=== PATIENT | female | born 1950 | race Caucasian/White ===

== ENCOUNTER → 2020-05-29 11:32 | Outpatient (CLI) | payer MEDICARE, OTHER, SELFPAY ==
--- NOTE | ~2020-05-29 | MM_ITS ---
EXAMINATION: MM screening [facility] BI w pavithra HISTORY: Screening mammogram TECHNIQUE: Craniocaudal and mediolateral oblique 3-D tomosynthesis images were obtained and synthetic 2-D images were generated. CAD analysis was submitted and interpreted. COMPARISON: 12/29/2017, 11/25/2016, 10/30/2015 bilateral digital screening mammogram examinations BREAST PARENCHYMAL COMPOSITION: The breasts are heterogeneously dense, which may obscure small masses . FINDINGS: There is no evidence of suspicious mass, calcification, or architectural distortion to sugg est malignancy in either breast. There has been no suspicious interval change. IMPRESSION: 1. No mammographic evidence of malignancy. 2. Recommend routine screening mammography in one year. BI-RADS Category 1: Negative Reviewed, dictated and finalized at location A.
--- NOTE | ~2020-05-29 | DEXA_ITS ---
Bone Density Report Name: Elisa Nair Age: 69 Sex: Female Ethnicity: White Date of : 1950 Indication: postmenopausal osteoporosis; monitoring treatment; hyperparathyroidism; prior fracture; hysterectomy; Referring Provider: [place] Study: Bone densitometry was performed. Exam Date: May 29, 2020 Accession number: [id number] Bone Density: Region BMD T-score Z-score Classification AP Spine (L1-L4) 0.743 -2.8 -0.5 Osteoporosis Femoral Neck (Right) 0.628 -2.0 -0.1 Osteopenia Total Hip (Right) 0.707 -1.9 -0.3 Osteopenia World Health Organization criteria for BMD impression classify patients as: Normal (T-score at or above -1.0), Osteopenia (T-score between -1.0 and -2.5), or Osteoporosis (T-score at or below -2.5). 10-year Fracture Risk: FRAX not reported because: Some T-score for Spine Total or Hip Total or Femoral Neck at or below -2.5 Treated for osteoporosis Previous Exams: Region Exam Age BMD T-score BMD Change BMD Change Date g/cm2 vs Baseline vs Previous AP Spine(L1-L4) 05/29/2020 69 0.743 -2.8 -0.020 -0.017 04/30/2017 66 0.761 -2.6 -0.003 -0.003 08/30/2014 64 0.764 -2.6 Total Hip(Right) 05/29/2020 69 0.707 -1.9 -0.009 -0.016 04/30/2017 66 0.723 -1.8 0.007 0.007 08/30/2014 64 0.716 -1.9 *Denotes significance at 95% confidence level, LSC for AP Spine = 0.022 g/cm2, LSC for Total Hip = 0.027 g/cm2 Clinical Information Provided by Patient: Has had a low trauma fracture Is being treated for osteoporosis Has used the following medications: HRT (i.e. estrogen/hormone therapy), Calcium Has the following medical conditions: Hyperparathyroidism, Hysterectomy Patient maximum height was 63.2 Menopause Age: 53 Drinks caffeinated beverages Onset of menses at age 14 Number of children 2 Impression: The patient has established osteoporosis, based on the Total Spine T-score and the existence of a prior fracture. The patient has risk factors, including: previous fracture. No significant bone loss was observed. Discussion: PATIENT UNDER TREATMENT WITH NO SIGNIFICANT BMD LOSS SINCE LAST EXAM. In an untreated patient, BMD typically declines with age. A lack of decline or gain is usually a sign that treatment is efficacious and fracture risk is reduced. It is important to ask patients whether they are taking their medications and to encourage continued and appropriate compliance with their osteoporosis therapies to reduce fracture risk. It
== END ==
PROVIDERS: PCP Family Medicine; Visit Provider Family Medicine
DX: Z12.31 Encounter for screening mammogram for malignant neoplasm of breast (principal); M81.0 Age-related osteoporosis without current pathological fracture; M85.851 Other specified disorders of bone density and structure, right thigh
CPT/HCPCS: 77063; 77067; 77080

== ENCOUNTER → 2021-05-14 09:37 | Outpatient (CLI) | payer MEDICARE, OTHER, SELFPAY ==
--- NOTE | ~2021-05-14 | CT_ITS ---
EXAMINATION: CT abdomen pelvis w con INDICATION: Left lower quadrant pain, diverticulitis TECHNIQUE: Computed tomographic images of the abdomen and pelvis were obtained after the administrati on of 100 cc of Omnipaque 350 intravenous contrast. The dose-length product (DLP) was 302.92 mGy-cm. Automated exposure control and iterative reconstruction technique were employed. COMPARISON: 01/24/2019 FINDINGS: Minimal dependent atelectasis is present in the lung bases. The heart size is normal. The l iver is diffusely low in attenuation when compared with the spleen, consistent with hepatic steatosis . The spleen, pancreas, gallbladder, and adrenal glands are normal. There is a 4 mm cyst of the right kidney. The left kidney is unremarkable. There is calcified atherosclerosis of the aorta and many of the other arteries. No pathologically enlarged abdominal or pelvic lymph nodes are identified. Colon ic diverticulosis is present without evidence of diverticulitis. The appendix is normal. There are ch anges of left total hip arthroplasty. A large volume of colonic stool is present. IMPRESSION: 1. Diverticulosis without evidence of diverticulitis. Reviewed, dictated and finalized at location A.
[2021-05-14 09:54] LABS: Estimated Glomerular Filt Rate > 60
== END ==
PROVIDERS: PCP Family Medicine; Visit Provider Physician Assistant
DX: N28.1 Cyst of kidney, acquired (principal); K57.30 Diverticulosis of large intestine without perforation or abscess without bleeding
CPT/HCPCS: 74177; Q9967

== ENCOUNTER → 2021-08-21 11:58 | Outpatient (CLI) | payer MEDICARE, OTHER, SELFPAY ==
--- NOTE | ~2021-08-21 | MM_ITS ---
EXAMINATION: MM screening [facility] BI w pavithra HISTORY: Screening mammogram TECHNIQUE: Craniocaudal and mediolateral oblique 3-D tomosynthesis images were obtained and synthetic 2-D images were generated. CAD analysis was submitted and interpreted. COMPARISON: 05/29/2020, 12/29/2017, 11/25/2016 bilateral screening mammogram examinations BREAST PARENCHYMAL COMPOSITION: The breasts are heterogeneously dense, which may obscure small masses . FINDINGS: There is no evidence of suspicious mass, calcification, or architectural distortion to sugg est malignancy in either breast. There has been no suspicious interval change. IMPRESSION: 1. No mammographic evidence of malignancy. 2. Recommend routine screening mammography in one year. BI-RADS Category 1: Negative Reviewed, dictated and finalized at location A. RMATION ASSISTANT
== END ==
PROVIDERS: PCP Family Medicine; Visit Provider Family Medicine
DX: Z12.31 Encounter for screening mammogram for malignant neoplasm of breast (principal)
CPT/HCPCS: 77063; 77067

== ENCOUNTER → 2022-05-21 11:56 | Outpatient (CLI) | payer MEDICARE, OTHER, SELFPAY ==
--- NOTE | ~2022-05-21 | XR_ITS ---
XR knee LT min 4V 05/21/2022 12:08 INDICATION: Left knee pain PROCEDURE: 4 views left knee COMPARISON: No prior studies for comparison. FINDINGS: Fracture, dislocation or subluxation is not identified. There is mild osteoarthritis of the left knee. No significant joint effusion. The soft tissues appear within normal limits. No foreign bodies are identified. IMPRESSION: 1: Mild osteoarthritis of the left knee. Reviewed, dictated and finalized at location A.
== END ==
PROVIDERS: PCP Family Medicine; Visit Provider Physician Assistant
DX: M25.562 Pain in left knee (principal); M17.12 Unilateral primary osteoarthritis, left knee
CPT/HCPCS: 73564

== ENCOUNTER 2022-06-09 10:56 | Outpatient (CLI) | payer MEDICARE, OTHER, SELFPAY ==
[2022-06-09 19:09] LABS: Alanine Aminotransferase 10 U/L (6-35); Albumin Level 4.5 g/dL (3.5-5.1); Alkaline Phosphatase 78 U/L (38-126); Anion Gap 5 mmol/L (8-16); Aspartate Amino Transferase 24 U/L (14-36); Bilirubin,Total 0.6 mg/dL (0.2-1.3); Blood Urea Nitrogen 13 mg/dL (7-17); Calcium 9.3 mg/dL (8.4-10.2); Carbon Dioxide 30 mmol/L (22-30); Chloride 99 mmol/L (98-107); Cholesterol 205 mg/dL (0-200); Estimated Glomerular Filt Rate > 60; Glucose 103 mg/dL (65-110); HDL Direct 48 mg/dL; Potassium 4.2 mmol/L (3.4-5.0); Sodium 134 mmol/L (137-145); Triglycerides 176 mg/dL (<150)
[2022-06-09 19:20] LABS: LDL Cholesterol Direct 121 mg/dL
[2022-06-09 19:41] LABS: Vitamin D 25 Hydroxy 43.1 ng/mL
== END 2022-06-09 10:57 | disposition home or self-care (01) ==
LOC: ANHGOSHLAB 11:01
PROVIDERS: PCP Family Medicine; Visit Provider Family Medicine
DX: E03.9 Hypothyroidism, unspecified (principal); Z78.0 Asymptomatic menopausal state; Z00.8 Encounter for other general examination; R79.89 Other specified abnormal findings of blood chemistry; E55.9 Vitamin D deficiency, unspecified
CPT/HCPCS: 36415; 80053; 80061; 82306; 84443

== ENCOUNTER → 2022-10-08 10:19 | Outpatient (CLI) | payer MEDICARE, SELFPAY ==
--- NOTE | ~2022-10-08 | MM_ITS ---
EXAMINATION: MM screening [facility] BI w pavithra HISTORY: Screening mammogram TECHNIQUE: Craniocaudal and mediolateral oblique 3-D tomosynthesis images were obtained and synthetic 2-D images were generated. CAD analysis was submitted and interpreted. COMPARISON: 08/21/2021, 05/29/2020, 12/29/2017 bilateral screening mammogram examinations BREAST PARENCHYMAL COMPOSITION: There are scattered areas of fibroglandular density. FINDINGS: There is no evidence of suspicious mass, calcification, or architectural distortion to sugg est malignancy in either breast. There has been no suspicious interval change. IMPRESSION: 1. No mammographic evidence of malignancy. 2. Recommend routine screening mammography in one year. BI-RADS Category 1: Negative Reviewed, dictated and finalized at location A. AL SERVICE TECHNICIAN
== END ==
PROVIDERS: PCP Family Medicine; Visit Provider Family Medicine
DX: Z12.31 Encounter for screening mammogram for malignant neoplasm of breast (principal)
CPT/HCPCS: 77063; 77067

== ENCOUNTER → 2022-12-24 09:50 | Outpatient (CLI) | payer MEDICARE, OTHER, SELFPAY ==
--- NOTE | ~2022-12-24 | DEXA_ITS ---
Bone Density Report Name: LUCY HAMILTON Age: 72 Sex: Female Ethnicity: White Date of : 1950 Indication: postmenopausal osteoporosis; monitoring treatment; parental hip fracture; hysterectomy; Referring Provider: OG SERRANO Study: Bone densitometry was performed. Exam Date: December 24, 2022 Accession number: [id number] Bone Density: Region BMD T-score Z-score Classification AP Spine (L1-L4) 0.783 -2.4 0.0 Osteopenia Femoral Neck (Right) 0.762 -0.8 1.3 Normal Total Hip (Right) 0.749 -1.6 0.2 Osteopenia World Health Organization criteria for BMD impression classify patients as: Normal (T-score at or above -1.0), Osteopenia (T-score between -1.0 and -2.5), or Osteoporosis (T-score at or below -2.5). 10-year Fracture Risk: FRAX not reported because: Treated for osteoporosis Previous Exams: Region Exam Age BMD T-score BMD Change BMD Change Date g/cm2 vs Baseline vs Previous AP Spine(L1-L4) 12/24/2022 72 0.783 -2.4 0.020 0.040* 05/29/2020 69 0.743 -2.8 -0.020 -0.017 04/30/2017 66 0.761 -2.6 -0.003 -0.003 08/30/2014 64 0.764 -2.6 Total Hip(Right) 12/24/2022 72 0.749 -1.6 0.033* 0.041* 05/29/2020 69 0.707 -1.9 -0.009 -0.016 04/30/2017 66 0.723 -1.8 0.007 0.007 08/30/2014 64 0.716 -1.9 *Denotes significance at 95% confidence level, LSC for AP Spine = 0.022 g/cm2, LSC for Total Hip = 0.027 g/cm2 Clinical Information Provided by Patient: Parent has had a hip fracture Is being treated for osteoporosis Has used the following medications: HRT (i.e. estrogen/hormone therapy), Prolia (i.e. denosumab), Vitamin D, Calcium Has the following medical conditions: Hysterectomy, HX OF OVARIAN CA IN HER 60'S WITH COMPLETE HYSTERECTOMY Patient maximum height was 63.3 Menopause Age: 53 Drinks caffeinated beverages Onset of menses at age 14 Number of children 2 Impression: The patient has low bone mass, based on the Total Spine T-score. The patient has risk factors, including: parental hip fracture. No significant bone loss was observed. Discussion: PATIENT UNDER TREATMENT WITH NO SIGNIFICANT BMD LOSS SINCE LAST EXAM. In an untreated patient, BMD typically declines with age. A lack of decline or gain is usually a sign that treatment is efficacious and fracture risk is reduced. It is important to ask patients whether they are taking their medications and to encourage continued and appropriate compliance wit
== END ==
PROVIDERS: PCP Family Medicine; Visit Provider Family Medicine
DX: M81.0 Age-related osteoporosis without current pathological fracture (principal); M85.89 Other specified disorders of bone density and structure, multiple sites
CPT/HCPCS: 77080

== ENCOUNTER → 2023-01-26 14:38 | Outpatient (CLI) | payer MEDICARE, OTHER, SELFPAY ==
--- NOTE | ~2023-01-26 | CT_ITS ---
EXAMINATION: CT abdomen pelvis wo con DATE: 01/26/2023 15:03 INDICATION: Left upper quadrant abdominal wall tenderness, left-sided stabbing abdominal pain for 2 w eeks TECHNIQUE: Computed tomography (CT) of the abdomen and pelvis was performed without intravenous contr ast. Automated exposure control and iterative reconstruction technique were employed. Exam dose: 421 .69 mGy-cm total exam DLP. COMPARISON: 05/2021 CT abdomen pelvis FINDINGS: The lung bases are clear of infiltrate or consolidation. Normal heart size. No pericardial or pleural effusion. Occasional calcified splenic granulomas. The liver, gallbladder, bile ducts, spleen, pancreas, pancre atic duct, and Glands and kidneys are otherwise unremarkable. Normal appendix. Diverticulosis of left and right colon; no CT evidence of diverticulitis. No bowel o bstruction, bowel wall thickening, pneumatosis or intraperitoneal free air is detected. There is atherosclerotic calcification but normal caliber of the abdominal aorta and iliac arteries. No intraperitoneal or retroperitoneal or pelvic mass lesion or adenopathy or ascites. Small fat-containing umbilical hernia. No suspicious osteolytic or osteoblastic lesions. Status post left total hip arthroplasty. IMPRESSION: Diverticulosis of the colon; no evidence of diverticulitis Normal appendix Reviewed, dictated and finalized at Location A. Reviewed, dictated and finalized at location L.
== END ==
PROVIDERS: PCP Family Medicine; Visit Provider Family Medicine
DX: K57.30 Diverticulosis of large intestine without perforation or abscess without bleeding (principal); R10.12 Left upper quadrant pain
CPT/HCPCS: 74176

== ENCOUNTER 2024-01-07 14:53 | Outpatient (CLI) | payer MEDICARE, OTHER, SELFPAY ==
--- NOTE | ~2024-01-07 | US_ITS ---
EXAMINATION: US venous doppler [facility] DATE: 01/07/2024 16:17 INDICATION: Left lower limb swelling and localized edema. TECHNIQUE: Grayscale ultrasound images without and with compression and Doppler ultrasound images of the left lower extremity veins were obtained. COMPARISON: None. FINDINGS: The visualized portions of left common femoral vein, profunda (deep) femoral vein, femoral vein, popl iteal vein, peroneal veins, posterior tibial veins, and greater saphenous vein outflow are patent. IMPRESSION: 1. No deep venous thrombosis. Reviewed, dictated and finalized at location A.
== END 2024-01-07 14:54 | disposition home or self-care (01) ==
LOC: ANHIMG 14:54
PROVIDERS: PCP Family Medicine; Visit Provider Family Medicine
DX: R60.0 Localized edema (principal); I89.0 Lymphedema, not elsewhere classified
CPT/HCPCS: 93971

== ENCOUNTER 2024-05-02 11:49 | Outpatient (CLI) | payer MEDICARE, OTHER, SELFPAY ==
--- NOTE | ~2024-05-02 | US_ITS ---
LEFT LOWER EXTREMITY VENOUS ULTRASOUND Ordering provider: Keila Snow MD History: . L foot swelling/hold and call . Comparison: None. FINDINGS: --COMMON FEMORAL: Patent and free of thrombus. Normal compressibility, phasic flow and augmentation. --PROXIMAL SUPERFICIAL FEMORAL: Patent and free of thrombus. Normal compressibility, phasic flow and augmentation. --DISTAL SUPERFICIAL FEMORAL: Patent and free of thrombus. Normal compressibility, phasic flow and au gmentation. --POPLITEAL: Patent and free of thrombus. Normal compressibility, phasic flow and augmentation. --POSTERIOR TIBIAL: Patent and free of thrombus. Normal compressibility, phasic flow and augmentation . IMPRESSION: Negative left lower extremity venous US. No deep vein thrombosis. Reviewed, dictated and finalized at location A.
== END 2024-05-02 11:50 | disposition home or self-care (01) ==
LOC: ANHIMG 11:50
PROVIDERS: PCP Family Medicine; Visit Provider Family Medicine
DX: M79.89 Other specified soft tissue disorders (principal)
CPT/HCPCS: 93971

== ENCOUNTER 2024-06-29 13:57 | Outpatient (CLI) | payer MEDICARE, OTHER, SELFPAY ==
--- NOTE | ~2024-06-29 | MM_ITS ---
EXAMINATION: MM screening [facility] BI w pavithra HISTORY: Screening mammogram TECHNIQUE: Craniocaudal and mediolateral oblique 3-D tomosynthesis images were obtained and synthetic 2-D images were generated. CAD analysis was submitted and interpreted. COMPARISON: 10/08/2022, 08/21/2021, 05/29/2020 BREAST PARENCHYMAL COMPOSITION:Dense: The breasts are heterogeneously dense, which may obscure small masses. FINDINGS: No suspicious mass, calcification, or architectural distortion are identified in either malou ast to suggest malignancy. There has been no suspicious interval change. IMPRESSION: No mammographic evidence of malignancy. Recommend routine screening mammography in one year. BI-RADS Category 1: Negative Reviewed, dictated and finalized at location .
== END 2024-06-29 13:58 | disposition home or self-care (01) ==
LOC: MICIMG 13:58
PROVIDERS: PCP Family Medicine; Visit Provider Family Medicine
DX: Z12.31 Encounter for screening mammogram for malignant neoplasm of breast (principal)
CPT/HCPCS: 77063; 77067

== ENCOUNTER 2025-03-26 10:00 | Outpatient (CLI) | payer MEDICARE, OTHER, SELFPAY ==
--- NOTE | ~2025-03-26 | DEXA_ITS ---
Bone Density Report Name: LUCY HAMILTON Age: 74 Sex: Female Ethnicity: White Date of : 1950 Indication: postmenopausal; screening for osteoporosis; parental hip fracture; hysterectomy; Referring Provider: JAISON CASTANEDA Study: Bone densitometry was performed. Exam Date: March 26, 2025 Accession number: [id number] Bone Density: Region BMD T-score Z-score Classification AP Spine(L1-L4) 0.778 -2.4 0.0 Osteopenia Femoral Neck (Right) 0.712 -1.2 0.9 Osteopenia Total Hip (Right) 0.760 -1.5 0.4 Osteopenia World Health Organization criteria for BMD impression classify patients as: Normal (T-score at or above -1.0), Osteopenia (T-score between -1.0 and -2.5), or Osteoporosis (T-score at or below -2.5). 10-year Fracture Risk: FRAX not reported because: Treated for osteoporosis Clinical Information Provided by Patient: Parent has had a hip fracture Is being treated for osteoporosis Has used the following medications: Prolia (i.e. denosumab), Vitamin D, Calcium Has the following medical conditions: Hysterectomy Patient maximum height was 63.5 Menopause Age: 53 Drinks caffeinated beverages Onset of menses at age 13 Number of children 2 Impression: The patient has low bone mass, based on the Total Spine T-score. The patient has risk factors, including: parental hip fracture. Discussion: It is important to ask patients whether they are taking their medications and to encourage continued and appropriate compliance with their osteoporosis therapies to reduce fracture risk. It is also important to review their risk factors and encourage appropriate calcium and vitamin D intakes, exercise, fall prevention and other lifestyle measures. Follow-Up: Consider a repeat BMD and Vertebral Fracture Assessment (VFA) exam in 2 years or sooner if medically necessary, to reassess this patient's status. Reported by: DEYANIRA on 03/26/2025 10:38:00 AM. Reviewed, dictated and finalized at location A.
--- OUTSIDE RECORDS SUMMARY | 2025-03-26 10:49 | XMS_ITS | Clinical Summary ---
Author Organization [facility] Address [facility] [place] [address] Care Team Providers Care Line Erector Apprentice Name Role Phone Lake Gutierrez MD Primary Care Provider [phone] Social History Tobacco Use Types Packs/Day Years Used Date Smoking Tobacco: Never Assessed Comments Unknown Sex and Gender Information Value Date Recorded Sex Assigned at Not on file Legal Sex Female 1:55 AM CDT Gender Identity Not on file Sexual Orientation Not on file Plan of Treatment Health Maintenance Due Date Last Done Comments Hepatitis C 1966 DTaP, Tdap and Td Vaccines ( 1 - Tdap) 1967 Pneumococcal Vaccine: 50+ Ye ars (1 of 1 - PCV) 1998 Zoster Vaccines (1 of 2) 1998 Dexa Scan (General) 2013 RSV Immunization or 60+ Years (1 - 1-dose 75+ series) 2023 COVID-19 Vaccine ( - 2023-2 5 season) 2024 Meningococcal B Vaccine Aged Out No l onger eligible based on patient's age to complete this topic Meningococcal Vaccine Aged Out No ronald sumanth eligible based on patient's age to complete this topic RSV Immunizations Under 20 Months Aged Out No longer eligible based on patient's age to complete this topic Care Teams Line Erector Apprentice Relationship Specialty Start Date End Date Lake Gutierrez MD [address] [place] [address] PCP - General 06/06/12
--- OUTSIDE RECORDS SUMMARY | 2025-03-26 10:49 | XMS_ITS | Clinical Summary ---
Author Organization [facility] Address [address] [place] [address] Care Team Providers Care Rail Equipment Operator Name Role Phone Krystle Gutierrez MD Primary Care Provider [phone] Source Comments [facility],non-owned Affiliates and Associated Physician Practices is amultiple site organization consisting of ambulatory clinics and hospital sitesin [place], [place], [place] and [place]. This disclosure is being madepursuant to the Care Everywhere program and may not contain all information available regarding this patient. Last updated 18.[facility] Allergies Active Allergy Reactions Criticality Noted Date Comments Codeine Nausea and/or Vomiting Low 08/06/2021 Hydrocodone Nausea and/or Vomiting,Dizziness High 06/28/2019 Lisinopril Cough Low 06/28/2019 Tramadol Palpitations Low 04/19/2012 Reaction: irregular heartbeat, skips a beat, Medications * Be aware that medications may not be up to date on this document. Alwaysverify current medications with the patient. polyethylene glycol (GOLYTELY) 236 g solution Drink 1/2 of prep at 5pm the night before test. Finish the prep at 4am the day of test. 4000 mL 1 Active Additional Information Patient not taking.Reported on 01/05/2022 calcium carbonate (CALCI-CHEW) 1250 (500 Ca) MG chew tablet Activ e cetirizine (ZYRTEC) 10 MG tablet Take 10 mg by mouth once daily Active Cholecalcifero l 50 MCG (2000 UT) Take 2,000 Units by mouth once daily 0 Active denosumab (PROLIA) 60 MG/ML SC injection Inject subcutaneously Every 180 days Active estradiol (ESTRACE) 0.5 MG tablet Take 0.5 mg by mouth once daily 1 Active levothyroxine (SYNTHROID) 75 MCG tablet 1 Active loratadine (CLARITIN) 10 MG tablet Active spironolactone (ALDACTONE) 25 MG tablet 1 Active bifantis (ALIGN) capsule 4 mg Active Active Problems Problem Noted Date Diagnosed Date Gastroesophageal reflux disease without esophagi tis 01/07/2022 Diverticulosis of colon 01/07/2022 Immunizations Immunization Administration Dates Next Due Admitly primary monoval ent 12+ yr 0.3mL Purple cap 05/30/2021,12/09/2020,11/18/2020 INFLUENZA VACCINE 07/08/2021 Family History Medical History Relation Name Comments CAD (Coronary Artery Disease) Father Cancer - Renal Mother Relation Name Status Comments Father Mother Social History Tobacco Use Types Packs/Day Years Used Date Smoking Tobacco: Never Smokeless Tobacco: Never Alcohol Use Standard Drinks/Week Comments Yes 0 (1 standard drink = 0.6 oz pur e alcohol) occasionally Comments Unknown Sex and Gender Information Value Date Recorded Sex Assigned at Female 10/07/2021 2:12 PM FREIGHT SERVICE INSPECTOR Legal Sex Female 12:12 PM CDT Gender Identity Female 10/07/2021 2:12 PM FREIGHT SERVICE INSPECTOR Sexual Orientation Straight 10/07/2021 2: 12 PM FREIGHT SERVICE INSPECTOR Last Filed Vital Signs Vital Sign Reading Time Taken Comments Blood Pressure 139/83 01/05/2022 9:40 AM CDT Pulse 87 01/05/2022 9:40 AM CDT Temperature 36.7 C (98.1 F) 01/05/2022 9:40 AM CDT Respiratory Rate 16 01/05/2022 9:40 AM CDT Oxygen Saturation 99% 01/05/2022 9:40 AM CDT Inhaled Oxygen Concentration - - Weight 57.2 kg (126 lb) 01/05/2022 9:40 AM CDT Height 160 cm (5' 3) 01/05/2022 9:40 AM CDT Body Mass Index 22.32 01/05/2022 9:40 AM CDT Plan of Treatment Health Maintenance Due Date Last Done Comments BONE DENSITY TESTING 1950 MEDICARE AWV 12 MONTHS 1950 HEPATITIS C SCREENING 07/21/1966 DTAP/TDAP/TD VACCINES (1 - Tdap) 1967 PNEUMOCOCCAL VACCINE 50+ (1 of 1 - PCV) 1998 ZOSTER VACCINE (1 of 2) 1998 Respiratory Syncytial Virus (RSV) Vaccine Pt: or over 60 yrs (1 - 1-dose 75+ series) 2023 COVID-19 VACCINE ( - season) 2024 05/30/2021, 12/09/2020, 11/18/2020 DEPRESSION SCREENING 10/11/2024 INFLUENZA VACCINE (Season Ended) 2025 07/08/2021, 07/06/2019, 08/08/2018, Additional history exists HEPATITIS B VACCINE Aged Out No longe r eligible based on patient's age to complete this topic HIB VACCINE Aged Out No longer eligi ble based on patient's age to complete this topic HPV VACCINE Aged Out No longer eligi ble based on patient's age to complete this topic MENINGOCOCCAL (Group B) VACCINE SHARED DECISION-MAKING Aged Out No longer eligible based on patient's age to complete this topic MENINGOCOCCAL GROUPS A/C/Y/W VACCINE Aged Out No longer eligible based on patient's age to complete this topic Goals Goal Patient Goal Type Associated Problems Recent Progress Patient-Stated? Author Medication Management General On track( 10:17 AM CDT) No Ashley Villatoro, RN Note: Expected end date: ongoing Interventions: Take all medications as prescribed Let your doctor know right away about any changes in your medications Make sure to request a refill of your medication at least one week prior to your last dose Safety General On track( 10:17 AM CDT) No Ashley Villatoro RN Note: Expected end date: ongoing Interventions: Wear non-skid/rubber sole footwear Keep personal items within easy reach Keep walking paths clutter free and clear Insurance MEDICARE [facility] MEDICARE Care Teams Rail Equipment Operator Relationship Specialty Start Date End Date Krystle Gutierrez MD [address] [place] [address] PCP - General 01/05/22
--- OUTSIDE RECORDS SUMMARY | 2025-03-26 10:49 | XMS_ITS | Referral Summary ---
Author Organization [facility] [address] Address [address] [place] [address] Care Team Providers Care House Nurse Name Role Phone Keila Snow MD Primary Care Provider + Allergies Active Allergy Reactions Criticality Noted Date Comments Codeine Nausea only Low Hydrocodone Syncope,Nausea only High 06/28/2019 Lisinopril Cough Low 06/28/2019 Tramadol Other (See comments),Palpitations Low 04/19/2012 Reaction: irregular heartbeat, skips a beat, Medications fluticasone (FLONASE) 50 mcg/actuation nasal spray USE 2 PUFFS IEN QD 3 08/10/2018 Active levothyroxine (SYNTHROID, LEVOTHROID) 75 mcg tablet TK 1 T PO QD 3 08/21/2018 Activ e spironolactone (ALDACTONE) 25 mg tablet TK 1 T PO QD 5 06/15/2018 Active calcium carbonate (TUMS) 500 mg (200 mg elemental) chewable tablet Acti ve cetirizine (ZyrTEC) 10 mg tablet Take 1 tablet (10 mg total) by mouth daily Active cholecalciferol (VITAMIN D-3) 2000 unit capsule Take 1 capsule (2,000 Units total) by mouth daily 10/05/2020 Active Bifidobacterium infantis (ALIGN) 4 mg capsule 1 capsule (4 mg total) Active denosumab (PROLIA) 60 mg/mL syringe Inject under the skin every 6 (six) months Active estradioL (ESTRACE) 0.5 mg tabletIndicatio ns:Endometrial cancer (HCC) TAKE ONE TABLET BY MOUTH ONCE DAILY 90 tablet 5 11/13/2022 Active vitamin E 400 unit capsule Take 1 capsule (400 Units total) by mouth Active vit C,Y-Tn-bsqrp-yogesh win-zeaxan 250-90-40-1 mg capsule Take by mouth Active acetaminophen (TYLENOL) 500 mg tablet Take 1 tablet (500 mg total) by mouth every 6 (six) hours as needed for pain Active Active Problems Problem Noted Date Diagnosed Date Sensorineural hearing loss (SNHL) of both ears 1 11/17/2023 Assessment & Plan (09/16/2024 1:27 PM HOSPITAL SECRETARY): She has bilateral sensorineural hearing loss which has a little worse on the left side in the lower tones. Overall her discrimination scores are good. I think she would benefit from hearing aids and we talked quite a bit about that. She is going to discuss it with her and also may be contacting our cement crusher operator for that. She had no questions. Bilateral impacted cerumen 09/16/2024 Assessment & Plan (09/16/2024 1:28 PM HOSPITAL SECRETARY): She has dry skin and wax lining the ear canals bilaterally. Mild form of eczema. Ears were cleaned without difficulty. This should facilitate hearing aid use if she pursues that. She otherwise will follow up with me as needed. Diverticulosis of colon 01/07/2022 Cervical radiculopathy 12/19/2015 Osteoporosis with pathological fracture 09/11/20 14 Arthritis 05/09/2013 Lymphedema 05/09/2013 Malignant neoplasm of body of uterus 05/24/2012 Hypothyroidism 04/21/2012 Gastroesophageal reflux disease 04/19/2012 Hypertension 04/19/2012 Immunizations Immunization Administration Dates Next Due Influenza, Quadrivalent, Rec ombinant, Egg Free, Preservative Free, Intramuscular 08/08/2018 Influenza, Trivalent, High D ose, Split, Preservative Free, Intramuscular 07/06/2019,07/09/2016,06/25/2015 Influenza, Unspecified 07/08/2021 [employer] SARS-CoV-2 Monovalent Vaccination (12+ Yrs) PURPLE 05/30/2021,12/09/2020,11/18/2020 ZOSTER LIVE 11/20/2014 Social History Tobacco Use Types Packs/Day Years Used Date Smoking Tobacco: Former Smokeless Tobacco: Never Tobacco Cessation:Counseling Given: Not Answered Alcohol Use Standard Drinks/Week Comments Yes 0 (1 standard drink = 0.6 oz pur e alcohol) Comments No Sex and Gender Information Value Date Recorded Sex Assigned at Not on file Legal Sex Female 1:44 AM HOSPITAL SECRETARY Gender Identity Not on file Sexual Orientation Not on file Occupation Industry Job Start Date Job End Date Retired Not on file Not on file Not on file Last Filed Vital Signs Vital Sign Reading Time Taken Comments Blood Pressure 114/69 02/16/2023 10:37 AM CDT Pulse 92 02/16/2023 10:37 AM CDT Temperature 36.2 C (97.1 F) 02/16/2023 10:37 AM CDT Respiratory Rate 18 09/15/2024 3:48 PM HOSPITAL SECRETARY Oxygen Saturation 96% 02/16/2023 10:37 AM CDT Inhaled Oxygen Concentration - - Weight 56.7 kg (125 lb) 09/15/2024 3:48 PM HOSPITAL SECRETARY Height 160 cm (5' 3) 09/15/2024 3:48 PM HOSPITAL SECRETARY Body Mass Index 22.14 09/15/2024 3:48 PM HOSPITAL SECRETARY Plan of Treatment Not on file Insurance MEDICARE [facility] [address] [id number] MEDICARE [employer] [place] MEDICARE [employer] [place] [employer] Care Teams House Nurse Relationship Specialty Start Date End Date Keila Snow MD PCP - General Family Medicine 08/31/22
--- OUTSIDE RECORDS SUMMARY | 2025-03-26 10:49 | XMS_ITS ---
Author Organization [facility] [address] Address [address] [place] [address] Care Team Providers Care Project Associate Name Role Phone Keila Snow MD Primary Care Provider + Active Problems Problem Noted Date Diagnosed Date Sensorineural hearing loss (SNHL) of both ears 1 11/17/2023 Assessment & Plan (09/16/2024 1:27 PM LETTER SORTING MACHINE OPERATOR): She has bilateral sensorineural hearing loss which has a little worse on the left side in the lower tones. Overall her discrimination scores are good. I think she would benefit from hearing aids and we talked quite a bit about that. She is going to discuss it with her and also may be contacting our ultrasonographer for that. She had no questions. Bilateral impacted cerumen 09/16/2024 Assessment & Plan (09/16/2024 1:28 PM LETTER SORTING MACHINE OPERATOR): She has dry skin and wax lining [...] 04/21/2012 Gastroesophageal reflux disease 04/19/2012 Hypertension 04/19/2012 Current Treatment and Therapy Plans No current plan information found. Past Treatment and Therapy Plans No past plan information found. Lifetime Dose Tracking * Chemical Lifetime Dose Automatic Entry Manual Entr y Fluoro Time 0.1 minutes 0.1 minutes 0 minutes
--- OUTSIDE RECORDS SUMMARY | 2025-03-26 10:49 | XMS_ITS | Clinical Summary ---
Author Organization [facility] [address] Address [address] [place] [address] Care Team Providers Care Manufacturing Maintenance Technician Name Role Phone Keila Snow MD Primary [...] (400 Units total) by mouth Active vit C,X-Uu-nwayt-yogesh win-zeaxan 250-90-40-1 mg capsule Take by mouth Active acetaminophen (TYLENOL) 500 mg tablet Take 1 tablet (500 mg total) by mouth every 6 (six) hours as needed for pain Active Active Problems Problem Noted Date Diagnosed Date Sensorineural hearing loss (SNHL) of both ears 1 11/17/2023 Assessment & Plan (09/16/2024 1:27 PM ANIMAL NURSE): She has bilateral sensorineural hearing loss which has a little worse on the left side in the lower tones. Overall her discrimination scores are good. I think she would benefit from hearing aids and we talked quite a bit about that. She is going to discuss it with her and also may be contacting our weather observer for that. She had no questions. Bilateral impacted cerumen 09/16/2024 Assessment & Plan (09/16/2024 1:28 PM ANIMAL NURSE): She has dry skin and wax lining [...] Preservative Free, Intramuscular 07/06/2019,07/09/2016,06/25/2015 Influenza, Unspecified 07/08/2021 [employer] SARS-CoV-2 Monovalent Vaccination (12+ Yrs) PURPLE 05/30/2021,12/09/2020,11/18/2020 ZOSTER LIVE 11/20/2014 Surgical History Surgery Date Site/Laterality Comments TOTAL HIP ARTHROPLASTY Total Hip Replacement - (Added by TW Conv) LA DILATION & CURETTAGE DX&/THER NONOBSTETRIC Dilation And Curettage - (Added by TW Conv) LA LIG/TRNSXJ FLP TUBE ABDL/VAG APPR UNI/BI Tubal Ligation - (Added by TW Conv) LA TOTAL ABDOMINAL HYSTERECT W/WO RMVL TUBE OVARY Hysterectomy - (Added by TW Conv) COLONOSCOPY Colonoscopy (Fiberoptic) - (Added by TW Conv) DILATION AND CURETTAGE, DIAGNOSTIC / THERAPEUTIC 10/11/1997 - 10/10/1998 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: hysteroscopy and D&C TONSILECTOMY, ADENOIDECTOMY, BILATERAL MYRINGOTOMY AND TUBES 10/11/1952 - 10/10/1953 Tonsillitis: tonsillectomy TUBAL LIGATION 10/11/1986 - 10/10/1987 Sterilization: Bilateral tubal ligation TOTAL HIP ARTHROPLASTY 10/11/2011 - 10/10/2012 hip replacement, left JOINT REPLACEMENT FLUORO GUIDED ASPIRATION OR INJECTION LARGE JOINT RIGHT 02/21/2021 Right CARPAL TUNNEL RELEASE 10/11/2017 - 10/10/2018 Right Medical History Medical History Date Comments Hx Other Medical Gastroesophagea l reflux disease Hx Other Medical Back pain Osteoporosis Osteoporosis Tonsillitis 1952 Tonsillitis Hx Other Medical 1986 Sterilization Hx Other Medical Hypothyroidism, primary Hypertension Hypertension Hx Other Medical 2011 DJD Hx Other Medical 1997 Complex atypica l hyperplasia on EMB; Outcome: mild atypia at D&C Hx Other Medical Seasonal allerg ies Thyroid disease DJD (degenerative joint disease) Complex atypical endometrial hyperplasia GERD (gastroesophageal reflux disease) Cancer (HCC) Allergies HL (hearing loss) Family History Medical History Relation Name Comments Heart attack Father Myocardial infa rction; Cause of : Myocardial infarction Heart disease Father Heart attack Father's Brother Myocardial infarction; Cancer Maternal Grandmother Esophag eal Esophageal cancer Maternal Grandmother Ca ncer, esophageal; Kidney cancer Mother Cancer, kidney ; Osteoporosis Mother Osteoporosis; Relation Name Status Comments Father (Age 55) Father's Brother Maternal Grandmother Mother Social History Tobacco Use Types Packs/Day Years Used Date Smoking Tobacco: Former Smokeless Tobacco: Never Tobacco Cessation:Counseling Given: Not Answered Alcohol Use Standard Drinks/Week Comments Yes 0 (1 standard drink = 0.6 oz pur e alcohol) Comments No Sex and Gender Information Value Date Recorded Sex Assigned at Not on file Legal Sex Female 1:44 AM ANIMAL NURSE Gender Identity Not on file Sexual Orientation Not on file Occupation Industry Job Start Date Job End Date Retired Not on file Not on file Not on file Obstetrics History Para Term AB IAB SAB Ectopic Multiple Livin g Live Births 3 2 2 1 1 2 Date Outcome GA Total Labor Labor/2nd/3rd Weight Sex Type Anes PTL Elizabeth A1 A5 Name Clin Term Term SAB Last Filed Vital Signs Vital Sign Reading Time Taken Comments Blood Pressure 114/69 02/16/2023 10:37 AM CDT Pulse 92 02/16/2023 10:37 AM CDT Temperature 36.2 C (97.1 F) 02/16/2023 10:37 AM CDT Respiratory Rate 18 09/15/2024 3:48 PM ANIMAL NURSE Oxygen Saturation 96% 02/16/2023 10:37 AM CDT Inhaled Oxygen Concentration - - Weight 56.7 kg (125 lb) 09/15/2024 3:48 PM ANIMAL NURSE Height 160 cm (5' 3) 09/15/2024 3:48 PM ANIMAL NURSE Body Mass Index 22.14 09/15/2024 3:48 PM ANIMAL NURSE Plan of Treatment Health Maintenance Due Date Last Done Comments Depression Screening 1950 Fall Risk Assessment 1950 Hepatitis C Screening 1950 Osteoporosis Screening-Bone Density Scan 1950 DTaP/Tdap/Td Vaccine (1 - Tdap) 1959 Hepatitis B Screening 1966 Pneumococcal vaccine 65+ (1 of 1 - PCV) 1998 Well Visit 65+ 2013 Zoster Vaccine (2 of 3) 01/15/2015 11/20/2014 Covid-19 Vaccine (4 - 2023-2 5 season) 2024 05/30/2021, 12/09/2020, 11/18/2020 Influenza Vaccine (Season Ended) 2025 07/08/2021, 07/06/2019, 08/08/2018, Additional history exists Insurance MEDICARE [employer] [place] [employer]ICARE [employer] [place] MEDICARE [employer] [facility] GENERIC Care Teams Manufacturing Maintenance Technician Relationship Specialty Start Date End Date Keila Snow MD PCP - General Family Medicine 08/31/22
--- OUTSIDE RECORDS SUMMARY | 2025-03-26 10:49 | XMS_ITS | Clinical Summary ---
Author Organization [facility] Address [address] [place]: Epic Prelude [place]T [place] [address] Care Team Providers Care Diamond Finishing Supervisor Name Role Phone Unavailable Primary Care Provider Unavailabl e Allergies Active Allergy Reactions Criticality Noted Date Comments Codeine Unknown 02/22/2022 Tramadol Unknown 02/22/2022 Medications amoxicillin (AMOXIL) 500 mg capsule Take 4 Capsules (2,000 mg) by mouth 1 HOUR prior to dental appointment. 8 Capsule 1 05/21/2022 8:15 AM CDT 2 Active fluconazole (DIFLUCAN) 150 mg tablet Take 1 tab (150 mg) by mouth, repeat after 3 days. 2 Tablet 06/26/2022 6:14 PM CDT 2 Active triamcinolone acetonide (KENALOG) 0.1 % Cream Apply to the affected area(s) three times daily. 454 Gram 07/03/2022 5:54 PM CDT 2 Active nirmatrelvir-ri tonavir (Paxlovid, EUA,) 300(150mg x 2)-100 mg oral pack TAKE PER PACKAGE DIRECTIONS. 1 Dose Pack 3 Active amitriptyline (ELAVIL) 10 mg tablet Take 1 tablet (10 mg) by mouth daily at bedtime, if no improvement after 4 weeks then increase to 2 tablets (20 mg) daily at bedtime. 180 Tablet 02/03/2023 4:11 PM CDT 3 Active sertraline (ZOLOFT) 25 mg tablet Take one tablet (25 mg) orally daily 90 Tablet 1 07/07/2023 11:09 AM CDT 3 Active furosemide (LASIX) 20 mg tablet Take 1 tablet (20 mg) orally every morning As Needed for edema 20 Tablet 4 Active estradioL (ESTRACE) 0.5 mg tablet Take 1 Tablet (0.5 mg) by mouth daily. 90 Tablet 1 4 Active levothyroxine 75 mcg tablet TAKE ONE TABLET BY MOUTH ONCE DAILY 90 Tablet 3 4 Active spironolactone (ALDACTONE) 25 mg tablet Take 1 Tablet (25 mg) by mouth daily. 90 Tablet 1 06/28/2024 6:49 PM CDT 4 Active benzonatate (TESSALON) 200 mg capsule Take 1 Capsule (200 mg) by mouth 3 times daily. 30 Capsule 09/22/2024 5:03 PM DIRECTOR SUPPLIER QUALITY 4 Active Cholecalciferol , Vitamin D3, 50 mcg (2,000 unit) Capsule Take 1 capsule by mouth daily. 90 Capsule 1 11/23/2024 2:14 PM DIRECTOR SUPPLIER QUALITY 5 Active cyclobenzaprine (FLEXERIL) 5 mg Tablet Take 1 Tablet (5 mg) by mouth 3 times daily as needed for muscle spasms. 20 Tablet 5 Active amoxicillin-cla vulanate (AUGMENTIN) 875-125 mg tablet Take 1 Tablet by mouth 2 times daily for 10 days. 20 Tablet 02/27/2025 7:47 PM CDT 5 03/09/20 25 Social History Tobacco Use Types Packs/Day Years Used Date Smoking Tobacco: Never Assessed Comments Unknown Sex and Gender Information Value Date Recorded Sex Assigned at Not on file Legal Sex Female 3:27 PM CDT Gender Identity Not on file Sexual Orientation Not on file Plan of Treatment Health Maintenance Due Date Last Done Comments DTAP/TDAP/TD VACCINES (1 - Tdap) 1967 PNEUMOCOCCAL VACCINE 50+ YEARS (1 of 1 - PCV) 07/25/19 98 ZOSTER VACCINE (1 of 2) 1998 OSTEOPOROSIS SCREENING 2013 RSV VACCINE (60+ or ) (1 - 1-dose 75+ series) 2023 INFLUENZA VACCINE (#1) 2024 Insurance [facility] Medicare Part B RX [employer] PLANS (INTERNAL) [facility] [employer] Commercial
== END 2025-03-26 10:01 | disposition home or self-care (01) ==
PROVIDERS: PCP Family Medicine; Visit Provider Student in an Organized Health Care Education/Training Program
DX: M85.89 Other specified disorders of bone density and structure, multiple sites (principal); Z78.0 Asymptomatic menopausal state
CPT/HCPCS: 77080

== ENCOUNTER 2025-07-11 10:24 | Outpatient (CLI) | payer MEDICARE, OTHER, SELFPAY ==
--- NOTE | ~2025-07-11 | MM_ITS ---
EXAMINATION: MM screening [facility] BI w pavithra HISTORY: Screening TECHNIQUE: Craniocaudal and mediolateral oblique 3-D tomosynthesis images were obtained and synthetic 2-D images were generated. CAD analysis was submitted and interpreted. COMPARISON: Comparison to multiple prior studies sequentially, with oldest reviewed study dated 11/25/2016. BREAST PARENCHYMAL COMPOSITION: Not dense: There are scattered areas of fibroglandular density. FINDINGS: There is no evidence of suspicious mass, calcification, or architectural distortion to suggest malignancy in either breast. There has been no suspicious interval change. IMPRESSION: 1. No mammographic evidence of malignancy. 2. Recommend routine screening mammography in one year. BI-RADS Category 1: Negative Reviewed, dictated and finalized at location B.
== END 2025-07-11 10:25 | disposition home or self-care (01) ==
LOC: MICIMG 10:25
PROVIDERS: PCP Family Medicine; Visit Provider Family Medicine
DX: Z12.31 Encounter for screening mammogram for malignant neoplasm of breast (principal)
CPT/HCPCS: 77063; 77067

== ENCOUNTER 2025-09-19 01:27 | Day surgery (SDC) | payer MEDICARE, OTHER, SELFPAY ==
--- OUTSIDE RECORDS SUMMARY | 2019-08-10 04:00 | XMS_ITS | Continuity of Care Document ---
Author Organization [facility] Address [address] [facility] [address] [place] [address] Phone Care Team Providers Care Rugby Union Footballer Name Role Phone Madison PT,MPT,ATC, Sameer Unavailable Unavai lable Procedures Procedure Date Therapeutic Activities Neuromuscular Re-Ed Therapeutic Exercise Therapeutic Activities Neuromuscular Re-Ed Therapeutic Exercise Therapeutic Activities Neuromuscular Re-Ed Therapeutic Exercise Therapeutic Activities Neuromuscular Re-Ed Therapeutic Exercise Therapeutic Activities Neuromuscular Re-Ed Therapeutic Exercise Therapeutic Activities Neuromuscular Re-Ed Therapeutic Exercise Therapeutic Activities Neuromuscular Re-Ed Therapeutic Exercise Therapeutic Activities Therapeutic Exercise Neuromuscular Re-Ed Manual Therapy PT Evaluation Moderate Complexity Therapeutic Activities Neuromuscular Re-Ed Therapeutic Exercise Therapeutic Exercise Therapeutic Activities Manual Therapy Hot or Cold Pack Carrying, Moving And Handling Objects-Cu rrent Carrying, Moving And Handling Objects-Go al Carrying, Moving And Handling Objects-Di scharge Therapeutic Exercise Therapeutic Activities Manual Therapy Progress Note Therapeutic Exercise Therapeutic Activities Manual Therapy Hot or Cold Pack Therapeutic Exercise Therapeutic Activities Neuromuscular Re-Ed Manual Therapy Hot or Cold Pack Therapeutic Exercise Therapeutic Activities Neuromuscular Re-Ed Manual Therapy Therapeutic Exercise Therapeutic Activities Neuromuscular Re-Ed Manual Therapy Hot or Cold Pack Therapeutic Exercise Therapeutic Activities Neuromuscular Re-Ed Hot or Cold Pack Therapeutic Exercise Therapeutic Activities Manual Therapy Hot or Cold Pack Therapeutic Activities Neuromuscular Re-Ed Hot or Cold Pack OT Evaluation Low Complexity Therapeutic Exercise Manual Therapy Hot or Cold Pack Carrying, Moving And Handling Objects-Cu rrent Carrying, Moving And Handling Objects-Go al Advance Directives Directive Yes / No Effective Date File Name No Information Encounters Encounter Description Practice Location Reason(s) For Visit Diagnoses Date Provider Providers Copied on Encounter [facility], [id number], tel:[phone] [place] No Information [address] [place], [place], [place]. Referring Provider: Buster De Oliveira, [address] [place], [address]. tel:[phone] [facility] [facility] [address], [place], [id number], tel:[phone] [place] No Information [address] [place], [place], [place]. Referring Provider: Buster De Oliveira, [address] [place], [address]. tel:[phone] [facility], [address], [place], [place], [id number], [place] tel:[phone] [place] No Information Oct-1 0-201 9 Madison Sameer. , [place], [place]. Referring Provider: Buster De Oliveira, [facility] [address], [place], [address]. tel:[phone] [facility], [address], [place], [place], [id number], [place] tel:[phone] [place] No Information Oct-0 8-201 9 Madison Sameer. , [place], [place]. Referring Provider: Buster De Oliveira, [facility] [address], [place], [address]. tel:[phone] [facility], [address], [place], [place], [id number], [place] tel:[phone] [place] No Information Oct-0 3-201 9 Threlkeld Aleah. . Referring Provider: Buster De Oliveira, [address], [place], [address]. tel:[phone] [place] [address], [address], [place], [place], [address], [place] tel:[phone] [place] No Information Oct-0 1-201 9 Madison Sameer. , [place], [place]. Referring Provider: Buster De Oliveira [address], [place], [address]. tel:[phone] [facility], [address], [place], [place], [address], [place] tel:[phone] [place] No Information Sep-2 6- 9 Madison Sameer. , [place], [place]. Referring Provider: Buster De Oliveira, [address], [place], [address]. tel:[phone] [facility], [address], [place], [place], [id number], [place] tel:[phone] [place] No Information Sep-2 9 [place], [place], [place]. Referring Provider: Bustre De Oliveira, [address], [place], [address]. tel:[phone] [facility], [id number], [place] tel:[phone] [place] No Information Sep-2 9 [place], [place]. Referring Provider: Buster De Oliveira, [address] [facility], [place], [address]. tel:[phone] [facility] [address], [id number], tel:[phone] [place] Muscle weakness (generalized)Pa in in right elbowPain in right wristParesthesi a of skinStiffness of right elbow, not elsewhere classifiedStiff ness of right wrist, not elsewhere classifiedCarpa l tunnel syndrome, right upper limbLesion of ulnar nerve, right upper limb 8 Hauschild Leonela. [address] [facility], [address], [place], [facility], [place]. tel:[phone] [facility] [address], [id number], [place] tel:[phone] [place] Muscle weakness (generalized)Pa in in right elbowPain in right wristParesthesi a of skinStiffness of right elbow, not elsewhere classifiedStiff ness of right wrist, not elsewhere classifiedCarpa l tunnel syndrome, right upper limbLesion of ulnar nerve, right upper limb 8 Hauschild Leonela. [address] [facility], [address], [place], [address], [place]. tel:[phone] [facility], [id number], [place] tel:[phone] [place] Muscle weakness (generalized)Pa in in right elbowPain in right wristParesthesi a of skinStiffness of right elbow, not elsewhere classifiedStiff ness of right wrist, not elsewhere classifiedCarpa l tunnel syndrome, right upper limbLesion of ulnar nerve, right upper limb February- 8 Hauschild Leonela. [address] [place] [address], [address], [place], [place], [facility], . tel:[phone] [facility] [facility], [place], [place], [id number], tel:[phone] [place] Muscle weakness (generalized)Pa in in right elbowPain in right wristParesthesi a of skinStiffness of right elbow, not elsewhere classifiedStiff ness of right wrist, not elsewhere classifiedCarpa l tunnel syndrome, right upper limbLesion of ulnar nerve, right upper limb 8 Hauschild Leonela. [address] [place] [address], [address], [place], [address], . tel:[phone] [facility], [place], [place], [id number], tel:[phone] [place] Muscle weakness (generalized)Pa in in right elbowPain in right wristParesthesi a of skinStiffness of right elbow, not elsewhere classifiedStiff ness of right wrist, not elsewhere classifiedCarpa l tunnel syndrome, right upper limbLesion of ulnar nerve, right upper limb 8 Hauschild Leonela. [address] [place] [address], [address], [place], [address], [place]. tel:[phone] [facility], [place], [place], [id number], tel:[phone] [place] Muscle weakness (generalized)Pa in in right elbowPain in right wristParesthesi a of skinStiffness of right elbow, not elsewhere classifiedStiff ness of right wrist, not elsewhere classifiedCarpa l tunnel syndrome, right upper limbLesion of ulnar nerve, right upper limb 8 Hauschild Leonela. [address] [place] [address], [address], [place], [address], [place]. tel:[phone] [facility] [address], [place], [place], [id number], tel:[phone] [place] Muscle weakness (generalized)Pa in in right elbowPain in right wristParesthesi a of skinStiffness of right elbow, not elsewhere classifiedStiff ness of right wrist, not elsewhere classifiedCarpa l tunnel syndrome, right upper limbLesion of ulnar nerve, right upper limb May-0 7-201 8 Hauschild Leonela. [address], [address], [place], [place], [facility], . tel:[phone] [facility], [place], [place], [address], tel:[phone] [place] Muscle weakness (generalized)Pa in in right elbowPain in right wristParesthesi a of skinStiffness of right elbow, not elsewhere classifiedStiff ness of right wrist, not elsewhere classifiedCarpa l tunnel syndrome, right upper limbLesion of ulnar nerve, right upper limb May-0 4-201 8 Hauschild Leonela. [address], [address], [place], [place], [facility], . tel:[phone] [facility] [address], [place], [place], [id number], tel:[phone] [place] Muscle weakness (generalized)Pa in in right elbowPain in right wristParesthesi a of skinStiffness of right elbow, not elsewhere classifiedStiff ness of right wrist, not elsewhere classifiedCarpa l tunnel syndrome, right upper limbLesion of ulnar nerve, right upper limb Apr-3 0-201 8 Hauschild Leonela. [address], [address], [place], [address], . tel:[phone] [facility], [place], [place], [id number], tel:[phone] [place] Muscle weakness (generalized)Pa in in right elbowPain in right wristParesthesi a of skinStiffness of right elbow, not elsewhere classifiedStiff ness of right wrist, not elsewhere classifiedCarpa l tunnel syndrome, right upper limbLesion of ulnar nerve, right upper limb Apr-2 201 8 Jing Gipson. [address] [facility], [address], [place], [address], [place]. tel:[phone] Family History Family Member Type Diagnosis Age At Onset No Information Payers Payer name Insurance type Covered alliance party ID Authoriza tijagdeep(s) Medicare [place] [id number] [facility] [address] [id number] Social History Type Description Quantity Date Captured Comments Sex Female Smoking Status No Information Chief Complaint And Reason For Visit No Information Reason For Referral Reason For Referral No Information History Of Present Illness Encounter Date Complaint History Of Prese nt Illness No Information Functional Status Date Functional Assessmen t No Information Instructions Date Instruction Additional Infor mation No Information Assessments Type Assessment Date No Information Patient Care Teams Name Effective Dates (start - stop) Status Members No Information
[2025-09-03 11:32] VITALS: BMI 21.4
--- OUTSIDE RECORDS SUMMARY | 2025-09-19 01:32 | XMS_ITS | Clinical Summary ---
Author Organization [facility] Address [address] [place] [address] Care Team Providers Care Oracle Business Analyst Name Role Phone Lake Gutierrez MD Primary Care Provider [phone] Social History Tobacco Use Types Packs/Day Years [...] - 1-dose 75+ series) 2023 COVID-19 Vaccine (1 - 2024-2 6 season) 2025 Influenza Adult (#1) 2025 Hepatitis A Vaccines Aged Out No long er eligible based on patient's age to complete this topic Meningococcal B Vaccine Aged Out No l onger eligible based on patient's age to complete this topic Meningococcal Vaccine Aged Out No ronald sumanth eligible based on patient's age to complete this topic RSV Immunizations Under 20 Months Aged Out No longer eligible based on patient's age to complete this topic Care Teams Oracle Business Analyst Relationship Specialty Start Date End Date Lake Gutierrez MD [address] [place] [address] PCP - General 06/06/12
--- OUTSIDE RECORDS SUMMARY | 2025-09-19 01:32 | XMS_ITS | Clinical Summary ---
Author Organization [facility] [address] Address [address] [place] [address] Care Team Providers Care Bridge Club Manager Name Role Phone Keila Snow MD Primary [...] estradioL (ESTRACE) 0.5 mg tabletIndicatio ns:Endometrial cancer TAKE ONE TABLET BY MOUTH ONCE DAILY 90 tablet 5 11/13/2022 Active vitamin E 400 unit capsule Take 1 capsule (400 Units total) by mouth Active vit C,M-Qj-qcfwd-yogesh win-bimalaxan 250-90-40-1 mg capsule Take by mouth Active acetaminophen (TYLENOL) 500 mg tablet Take 1 tablet (500 mg total) by mouth every 6 (six) hours as needed for pain Active Active Problems Problem Noted Date Diagnosed Date Sensorineural hearing loss (SNHL) of both ears 1 11/17/2023 Assessment & Plan (09/16/2024 1:27 PM MUTUAL FUND ANALYST): She has bilateral sensorineural hearing loss which has a little worse on the left side in the lower tones. Overall her discrimination scores are good. I think she would benefit from hearing aids and we talked quite a bit about that. She is going to discuss it with her and also may be contacting our traffic clerk for that. She had no questions. Bilateral impacted cerumen 09/16/2024 Assessment & Plan (09/16/2024 1:28 PM MUTUAL FUND ANALYST): She has dry skin and wax lining [...] Preservative Free, Intramuscular 07/06/2019,07/09/2016,06/25/2015 Influenza, Unspecified 07/08/2021 Playdek SARS-CoV-2 Monovalent Vaccination (12+ Yrs) PURPLE 05/30/2021,12/09/2020,11/18/2020 ZOSTER LIVE 11/20/2014 Surgical History Surgery Date Site/Laterality Comments TOTAL HIP ARTHROPLASTY Total Hip Replacement - (Added by TW Conv) [place] DILATION & CURETTAGE DX&/THER NONOBSTETRIC Dilation And Curettage - (Added by TW Conv) [place] LIG/TRNSXJ FLP TUBE ABDL/VAG APPR UNI/BI Tubal Ligation - (Added by TW Conv) [place] TOTAL ABDOMINAL HYSTERECT W/WO RMVL TUBE OVARY [...] on file Legal Sex Female 1:44 AM MUTUAL FUND ANALYST Gender Identity Not on file Sexual Orientation [...] CDT Respiratory Rate 18 09/15/2024 3:48 PM MUTUAL FUND ANALYST Oxygen Saturation 96% 02/16/2023 10:37 AM CDT Inhaled Oxygen Concentration - - Weight 56.7 kg (125 lb) 09/15/2024 3:48 PM MUTUAL FUND ANALYST Height 160 cm (5' 3) 09/15/2024 3:48 PM MUTUAL FUND ANALYST Body Mass Index 22.14 09/15/2024 3:48 PM MUTUAL FUND ANALYST Plan of Treatment Health Maintenance Due Date Last Done Comments Depression Screening 1948 Fall Risk Assessment 1950 Hepatitis C Screening 1950 Osteoporosis Screening-Bone Density Scan 1948 DTaP/Tdap/Td Vaccine (1 - Tdap) 1959 Hepatitis B Screening 1966 Pneumococcal vaccine 65+ (1 of 1 - PCV) 1998 Well Visit 65+ 2013 Zoster Vaccine (2 of 3) 01/15/2015 11/20/2014 Covid-19 Vaccine (4 - 2024-2 6 season) 2025 05/30/2021, 12/09/2020, 11/18/2020 Influenza Vaccine (#1) 2025 , 07/06/2019, 08/08/2018, Additional history exists Insurance MEDIC[place] [employer] [place] [employer] [place] [employer] [place] Care Teams Bridge Club Manager Relationship Specialty Start Date End Date Keila Snow MD PCP - General Family Medicine 08/31/22
--- OUTSIDE RECORDS SUMMARY | 2025-09-19 01:32 | XMS_ITS | Encounter Summary ---
Author Organization [facility] Address [address] [place] [address] Care Team Providers Care Link Trainer Maintenance Man Name Role Phone Krystle Gutierrez MD Primary Care Provider [phone] Keila Snow MD Primary Care Provider + Encounter Details Date Type Department Care Team (Late st Contact Info) Description 12/17/2017 [place] Only [facility] [place] Management [address] [place] [id number] Scanning, Provider Social History Tobacco Use Types Packs/Day Years Used Date Smoking Tobacco: Former Alcohol Use Standard Drinks/Week Comments Yes 0 (1 standard drink = 0.6 oz pur e alcohol) Comments Unknown Sex and Gender Information Value Date Recorded Sex Assigned at Not on file Legal Sex Female 1:44 AM ECCLESIASTICAL WORKER Gender Identity Not on file Sexual Orientation Not on file documented as of this encounter Plan of Treatment Not on file documented as of this encounter Procedures Procedure Name Priority Date/Time Associated Diagnosis Comments CARDIOLOGY DOCUMENT SCAN 12/17/2017 documented in this encounter Results * Cardiology Document Scan (12/17/2017) Anatomical Region Laterality Modality Other us Provider Scanning CV CARDIAC SERVICES PROCEDURES Final Result documented in this encounter Visit Diagnoses Not on filedocumented in this encounter Care Teams Link Trainer Maintenance Man Relationship Specialty Start Date End Date Krystle Gutierrez MD [address] [place] [place] [address] PCP - General 03/21/12 08/30/22 Keila Snow MD [address] [place] [address] PCP - General Family Medicine 08/31/22 documented as of this encounter
--- OUTSIDE RECORDS SUMMARY | 2025-09-19 01:32 | XMS_ITS | Clinical Summary ---
Author Organization [facility] Address [address] Aguilar: Epic Prelude ADT [place] [address] Care Team Providers Care Pyrometallurgical Engineer Name Role Phone Unavailable Primary Care Provider [...] times daily. 30 Capsule 09/22/2024 5:03 PM EXPERIMENTAL PSYCHOLOGIST 4 Active Cholecalciferol , Vitamin D3, 50 mcg (2,000 unit) Capsule Take 1 capsule by mouth daily. 90 Capsule 1 11/23/2024 2:14 PM EXPERIMENTAL PSYCHOLOGIST 5 Active cyclobenzaprine (FLEXERIL) 5 mg Tablet Take 1 Tablet (5 mg) by mouth 3 times daily as needed for muscle spasms. 20 Tablet 5 Active Encounters Date Type Department Care Team Description 07/10/2025 External Device Data [facility] ABSTRACTION Provider, Abstract from Last 3 Months Social History Tobacco Use Types Packs/Day Years [...] 1-dose 75+ series) 2023 INFLUENZA VACCINE (#1) 2025 Insurance RX [employer] DATA Medicare Part B RX [employer]S PLANS (INTERNAL) [facility] RX [employer] Commercial
--- OUTSIDE RECORDS SUMMARY | 2025-09-19 01:32 | XMS_ITS ---
Author Organization [facility] [address] Address [address] [place] [address] Care Team Providers Care Control Officer Name Role Phone Keila Snow MD Primary Care Provider + Active Problems Problem Noted Date Diagnosed Date Sensorineural hearing loss (SNHL) of both ears 1 11/17/2023 Assessment & Plan (09/16/2024 1:27 PM WELDER FABRICATOR): She has bilateral sensorineural hearing loss which has a little worse on the left side in the lower tones. Overall her discrimination scores are good. I think she would benefit from hearing aids and we talked quite a bit about that. She is going to discuss it with her and also may be contacting our softlines supervisor for that. She had no questions. Bilateral impacted cerumen 09/16/2024 Assessment & Plan (09/16/2024 1:28 PM WELDER FABRICATOR): She has dry skin and wax lining [...]
--- OUTSIDE RECORDS SUMMARY | 2025-09-19 01:32 | XMS_ITS | Clinical Summary ---
Author Organization [facility] Address [address] [place] [address] Care Team Providers Care Staff Registered Nurse Name Role Phone Krystle Gutierrez MD Primary Care Provider [phone] Source Comments [facility],non-owned Affiliates and Associated Physician Practices is amultiple site organization consisting of ambulatory clinics and hospital sitesin [place], [place], [place] and [place]. This disclosure is being madepursuant to the Care Everywhere program and may not contain all information available regarding this patient. Last updated 18.[facility] Allergies Active Allergy Reactions Criticality Noted Date [...] 01/07/2022 Immunizations Immunization Administration Dates Next Due ideaTree - innovate | mentor | invest primary monoval ent 12+ yr 0.3mL Purple [...] Sex Assigned at Female 10/07/2021 2:12 PM INSIGHTS ANALYST Legal Sex Female 12:12 PM CDT Gender Identity Female 10/07/2021 2:12 PM INSIGHTS ANALYST Sexual Orientation Straight 10/07/2021 2: 12 PM INSIGHTS ANALYST Last Filed Vital Signs Vital Sign Reading [...] Last Done Comments BONE DENSITY TESTING 1948 HEPATITIS C SCREENING 07/21/1966 DTAP/TDAP/TD VACCINES (1 - Tdap) 1967 PNEUMOCOCCAL VACCINE 50+ (1 of 1 - PCV) 1998 ZOSTER VACCINE (1 of 2) 1998 Respiratory Syncytial Virus (RSV) Vaccine Pt: or over 60 yrs (1 - 1-dose 75+ series) 2023 DEPRESSION SCREENING 10/11/2024 COVID-19 VACCINE ( - 2024- season) 2025 05/30/2021, 12/09/2020, 11/18/2020 INFLUENZA VACCINE (#1) 2025 , 07/06/2019, 08/08/2018, Additional history exists HEPATITIS B [...] Patient-Stated? Author Medication Management General On track( 022 10:17 AM CDT) Ashley Daley RN Note: Expected end date: ongoing Interventions: Take all medications as prescribed Let your doctor know right away about any changes in your medications Make sure to request a refill of your medication at least one week prior to your last dose Safety General On track( 022 10:17 AM CDT) Ashley Daley, RN Note: Expected end date: ongoing Interventions: Wear non-skid/rubber sole footwear Keep personal items within easy reach Keep walking paths clutter free and clear Insurance MEDICARE [place] [address] MEDICARE Care Teams Staff Registered Nurse Relationship Specialty Start Date End Date Krystle Gutierrez MD [address] [place] [id number] PCP - General 01/05/22"
[2025-09-19 07:49] VITALS: BP 120/65; PULSE 112; RESP 20; TEMP 36.4; O2SAT 98; BMI 21.4
[2025-09-19] MEDS: LACTATED RINGERS 1,000 ML 150 ML IV CONT (08:01)
--- NOTE | 2025-09-19 08:22 | WPDANESEPPF ---
Anes - Initial Pre Proc Eval Procedure: Operation Date: 09/19/25 08:30 Proposed Procedures p Diagnostic Colonoscopy - Jordon Ruiz MD Date/Time: 09/19/25 08:22 Surgeon: Jordon Ruiz MD Pre Op Diagnosis: Diverticulitis of intestine, part unspecified, wit Patient Data Age: 75 Gender: F Height: 1.6 m Weight: 54.9 kg Last Vital Signs Temp 36.4 C 09/19/25 07:49 Pulse 112 H 09/19/25 07:49 Resp 20 09/19/25 07:49 BP 120/65 09/19/25 07:49 Pulse Ox 98 09/19/25 07:49 O2 Del Method Room Air 09/19/25 07:49 Allergies Allergy/AdvReac Type Severity Reaction Status Date / Time codeine Allergy Unknown nausea Verified 09/19/25 07:47 hydrochlorothiazide Allergy Unknown Unknown Verified 09/19/25 07:47 hydrocodone Allergy Unknown Nausea And Verified 09/19/25 07:47 Vomiting lisinopril Allergy Unknown Unknown Verified 09/19/25 07:47 tramadol Allergy Unknown Unknown Verified 09/19/25 07:47 triamterene Allergy Unknown Unknown Verified 09/19/25 07:47 Home Medications ?Medication ?Instructions ?Recorded ?Confirmed ?Type cetirizine 10 mg tablet 5 mg PO DAILY 07/26/20 09/19/25 History fluticasone propionate 50 1 spray intranasal DAILY 07/26/20 09/19/25 History mcg/actuation nasal spray,suspension denosumab 60 mg/mL subcutaneous 60 mg subcut [id number] #1 mL 01/01/23 09/03/25 Rx syringe (Prolia) Compression stockings #4 multiple units 11/02/23 08/28/25 Rx Bifidobacterium infantis 4 mg 4 mg PO DAILY 11/20/24 09/19/25 History capsule (Align (B.infantis)) calcium carbonate 400 mg PO DAILY 11/20/24 09/19/25 History vitamins A,C,W-xxmg-tupsjf 2,148 2 tablet PO BID 11/20/24 09/19/25 History mcg-113 mg-45 mg-17.4 mg tablet (PreserVision AREDS) cholecalciferol (vitamin D3) 50 50 mcg PO DAILY #90 caps 11/21/24 09/19/25 Rx mcg (2,000 unit) capsule citalopram 10 mg tablet 10 mg PO DAILY #90 tabs 06/15/25 09/19/25 Rx spironolactone 25 mg tablet 25 mg PO DAILY #90 tabs 07/05/25 09/19/25 Rx levothyroxine 75 mcg tablet See Rx Instructions .Route 08/03/25 09/19/25 Rx .COMPLEX #90 tabs Patient hx anesthesia problems: none Family hx anesthesia problems: none Results Review: All pre-operative results and documents have been reviewed as part of the pre-operative evaluation. [facility] Past Medical History Medical History Diverticulosis Recurrent diverticulitis Degenerative joint disease of right hip Diverticulitis Impacted cerumen of both ears Glucose intolerance Uterine cancer stage 1, followed by Dr Hilton History of bone density study (~08/30/14) History of mammogram (~11/25/16) Surgical History Surgical History History of hysterectomy (~2009) History of colonoscopy (~03/11/10) History of hip replacement (~2011) Family History Family History Mother Patient's mother is in good health Family history of Alzheimer's disease Family history of renal cell carcinoma Family history of glaucoma Family history of throat cancer Father Acute myocardial infarction, Onset Age: 55 Family history of cardiovascular disease Grandparent Family history of malignant neoplasm of esophagus Social History Social History Smoking status: Never smoker Alcohol intake: current Drinks per week: 4 Substance use: never Substance use type: does not use Lack of Transportation: No Lack of Food: Never True Current Housing: I Have Housing Concerned About Future Housing: No Difficulty Paying Gas/Electric Bills: No Difficulty Paying for Meds: No Currently Unemployed: No Education: Master's Degree or Higher Difficulty w/ Childcare or Family Care: No Anes - Eval Final PreProcedure Day of Procedure 09/19/25 08:22 Patient weight: normal Heart: regular rate and rhythm Lungs: clear to auscultation Airway: Mallampati scale class II Neurological: alert and oriented Last oral intake: >/= 8 hours ASA classification: III Emergent: no Anesthetic plan: proceed Anesthesia type and monitoring: general GIVS and standard monitoring Results Review: All pre-operative results and documents have been reviewed as part of the pre-operative evaluation. Informed Consent: The patient's anesthetic plan and its attendant risks and benefits were discussed with the patient/family/POA. Questions were solicited and answers provided to the satisfaction of the patient/family/POA.
--- NOTE | 2025-09-19 08:30 | PM.HPGS ---
History of Present Illness History of Present Illness Consent: Risks, benefits, and alternatives have been discussed and questions answered. Patient agrees to proceed with procedure. Chief complaint: Diverticulitis of intestine, part unspecified, wit Narrative: Elisa Nair is a 75 year old female with diverticulitis, last colonoscopy 2020 Review of Systems Review of Systems: All systems reviewed & are unremarkable except as noted in HPI and below PMFSH Past Medical History Medical History (Updated 09/19/25 @ 08:45 by Jordon Ruiz MD) History of diverticulitis Diverticulosis Recurrent diverticulitis Degenerative joint disease of right hip Diverticulitis Impacted cerumen of both ears Glucose intolerance Uterine cancer stage 1, followed by Dr Hilton History of bone density study (~08/30/14) History of mammogram (~11/25/16) Surgical History Surgical History History of hysterectomy (~2009) History of colonoscopy (~03/11/10) History of hip replacement (~2011) Family History Family History Mother Patient's mother is in good health Family history of Alzheimer's disease Family history of renal cell carcinoma Family history of glaucoma Family history of throat cancer Father Acute myocardial infarction, Onset Age: 55 Family history of cardiovascular disease Grandparent Family history of malignant neoplasm of esophagus Social History Social History Smoking status: Never smoker Alcohol intake: current Drinks per week: 4 Substance use: never Substance use type: does not use Lack of Transportation: No Lack of Food: Never True Current Housing: I Have Housing Concerned About Future Housing: No Difficulty Paying Gas/Electric Bills: No Difficulty Paying for Meds: No Currently Unemployed: No Education: Master's Degree or Higher Difficulty w/ Childcare or Family Care: No Meds Home Medications and Allergies Home Medications ?Medication ?Instructions ?Recorded ?Confirmed ?Type cetirizine 10 mg tablet 5 mg PO DAILY 07/26/20 09/19/25 History fluticasone propionate 50 1 spray intranasal DAILY 07/26/20 09/19/25 History mcg/actuation nasal spray,suspension denosumab 60 mg/mL subcutaneous 60 mg subcut [id number] #1 mL 01/01/23 09/03/25 Rx syringe (Prolia) Compression stockings #4 multiple units 11/02/23 08/28/25 Rx Bifidobacterium infantis 4 mg 4 mg PO DAILY 11/20/24 09/19/25 History capsule (Align (B.infantis)) calcium carbonate 400 mg PO DAILY 11/20/24 09/19/25 History vitamins A,C,S-nnnt-uhvazw 2,148 2 tablet PO BID 11/20/24 09/19/25 History mcg-113 mg-45 mg-17.4 mg tablet (PreserVision AREDS) cholecalciferol (vitamin D3) 50 50 mcg PO DAILY #90 caps 11/21/24 09/19/25 Rx mcg (2,000 unit) capsule citalopram 10 mg tablet 10 mg PO DAILY #90 tabs 06/15/25 09/19/25 Rx spironolactone 25 mg tablet 25 mg PO DAILY #90 tabs 07/05/25 09/19/25 Rx levothyroxine 75 mcg tablet See Rx Instructions .Route 08/03/25 09/19/25 Rx .COMPLEX #90 tabs Allergies Allergy/AdvReac Type Severity Reaction Status Date / Time codeine Allergy Unknown nausea Verified 09/19/25 07:47 hydrochlorothiazide Allergy Unknown Unknown Verified 09/19/25 07:47 hydrocodone Allergy Unknown Nausea And Verified 09/19/25 07:47 Vomiting lisinopril Allergy Unknown Unknown Verified 09/19/25 07:47 tramadol Allergy Unknown Unknown Verified 09/19/25 07:47 triamterene Allergy Unknown Unknown Verified 09/19/25 07:47 Vital Signs Vital Signs - 24 hr 09/19/25 07:49 Temperature 97.6 F Pulse Rate 112 H Respiratory Rate 20 Blood Pressure 120/65 Pulse Oximetry 98 Oxygen Delivery Room Air Exam Const: General: comfortable and no acute distress HENMT: Face/Nose/Sinus: Normal nares present Eyes: General: appearance normal, both eyes and all related structures Neck: Neck: no JVD Resp: Auscultation: clear to auscultation bilaterally Cardio: Rate: regular rate Rhythm: regular rhythm GI: Inspection: non-distended GI Palp: Yes Soft to palpation Skin: General skin exam: normal color Extrem: General: normal to inspection Psych: Mental Status: mental status grossly normal Assessment and Plan Assessment and plan (1) History of diverticulitis: Code(s): Z87.19 - Personal history of other diseases of the digestive system Status: Acute Assessment and Plan: colonoscopy
[2025-09-19 08:46] VITALS: BP 96/58; PULSE 80; RESP 20; O2SAT 99
[2025-09-19 08:56] VITALS: BP 93/55; PULSE 79; RESP 18; O2SAT 98
[2025-09-19 09:06] VITALS: BP 109/69; PULSE 81; RESP 18; O2SAT 100
== END 2025-09-19 09:21 | disposition home or self-care (01) ==
PROVIDERS: PCP Family Medicine; Referring Provider Nurse Practitioner Family; Visit Provider Internal Medicine Gastroenterology
PROC: 0DJD8ZZ Inspection of Lower Intestinal Tract, Via Natural or Artificial Opening Endoscopic (ICD-10-PCS; CPT 45378; principal; 2025-09-19 08:30)
DX: K57.30 Diverticulosis of large intestine without perforation or abscess without bleeding (principal); K64.8 Other hemorrhoids; M16.11 Unilateral primary osteoarthritis, right hip; Z98.890 Other specified postprocedural states; Z85.42 Personal history of malignant neoplasm of other parts of uterus; Z80.51 Family history of malignant neoplasm of kidney; Z80.1 Family history of malignant neoplasm of trachea, bronchus and lung; Z80.0 Family history of malignant neoplasm of digestive organs; Z82.49 Family history of ischemic heart disease and other diseases of the circulatory system
CPT/HCPCS: 45378; J2003; J2704; J7120